=== PATIENT | female | born 1950 | race Caucasian/White ===

== ENCOUNTER 2019-05-01 19:58 | Emergency (ER) | payer MEDICARE, BC ==
[2019-05-01 20:20] VITALS: RESP 18; TEMP 97.3
[2019-05-01 20:30] LABS: Glucose,Whole Blood 129 mg/dL (75-99)
[2019-05-01] MEDS ORDERED: MECLIZINE 12.5 MG TAB PO STA (21:03)
[2019-05-01] MEDS ORDERED: SODIUM CHLORIDE 0.9% 1,000 ML IV STA (21:04)
[2019-05-01] MEDS ORDERED: SODIUM CHLORIDE 0.9% 500 ML 500 ML IV STA (21:04)
--- NOTE | 2019-05-01 21:09 | ED ---
Dizziness HPI - General Chief Complaint: Dizziness Stated Complaint: Nausea/Vomiting Time Seen by Provider: 05/01/19 20:35 Source: patient, family, EMS, RN notes reviewed Mode of arrival: EMS Limitations: no limitations - History of Present Illness Initial Comments: This is a 60-year-old female with extensive history of aortic surgery was descending and ascending aortic surgery also stent placement in the recent past who states while eating dinner tonight she became very lightheaded and dizzy with some nausea. She has she did vomit multiple times also. She complains generalized weakness she does get dizziness with head movement and some much wit h her eyes. No chest or abdominal pain no weakness to her upper or lower extremities focal he just generalized weakness. She does state that she has recently been worked up she does have an extensive history of hypertension her pressure at the onset was 220/120 currently is 183/86 this is not uncommon for her she states. She has of a history of hypertension as well as melanoma treatment in the past. She also does say she had a recent medication change. At this time no other modifying factors MD Complaint: dizziness - Related Data Home Medications Medication Instructions Recorded Confirmed Aspirin 325 mg PO DAILY 05/01/19 05/01/19 Clopidogrel [Plavix] 75 mg PO DAILY 05/01/19 05/01/19 Hydrochlorothiazide 25 mg PO DAILY 05/01/19 05/01/19 Labetalol [Trandate] 100 mg PO BID 05/01/19 05/01/19 amLODIPine [Norvasc] 2.5 mg PO HS 05/01/19 05/01/19 Previous Rx's Medication Instructions Recorded Meclizine [Antivert] 25 mg PO TID #20 tab 05/02/19 Potassium Chloride ER [K-Dur 20] 20 meq PO DAILY #10 tab 05/02/19 Allergies Allergy/AdvReac Type Severity Reaction Status Date / Time codeine AdvReac DOES NOT Verified 05/01/19 21:05 WANT hydromorphone [From Dilaudid] AdvReac DOES NOT Verified 05/01/19 21:05 WANT meperidine [From Demerol] AdvReac DOES NOT Verified 05/01/19 21:05 WANT morphine AdvReac DOES NOT Verified 05/01/19 21:05 WANT oxycodone [From OxyContin] AdvReac DOES NOT Verified 05/01/19 21:05 WANT Review of Systems ROS Statement: Those systems with pertinent positive or pertinent negative responses have been documented in the HPI. ROS Other: All systems not noted in ROS Statement are negative. Past Medical History Past Medical History: Deep Vein Thrombosis (DVT), Hypertension Additional Past Medical History / Comment(s): AAA repair ascending and descendi ng, stents to descending and total repair of ascending. Aortic Dissection. Additional Past Surgical History / Comment(s): AAA dissection and repair at [facility] Smoking Status: Former smoker Past Alcohol Use History: Rare Past Drug Use History: None Reported General Exam - General Exam Comments Initial Comments: This a well-developed well-nourished awake alert oriented 3 female Limitations: no limitations General appearance: alert, in no apparent distress Head exam: Present: atraumatic, normocephalic, normal inspection Eye exam: Present: normal appearance, PERRL, EOMI. Absent: scleral icterus, conjunctival injection, periorbital swelling ENT exam: Present: mucous membranes dry Neck exam: Present: normal inspection, full ROM, other (No stridor JVD or bruits). Absent: tenderness, meningismus, lymphadenopathy Respiratory exam: Present: normal lung sounds bilaterally. Absent: respiratory distress, wheezes, rales, rhonchi, stridor Cardiovascular Exam: Present: regular rate, normal rhythm, normal heart sounds. Absent: systolic murmur, diastolic murmur, rubs, gallop, clicks GI/Abdominal exam: Present: soft, normal bowel sounds. Absent: distended, tenderness, guarding, rebound, rigid, bruit, pulsatile mass Extremities exam: Present: normal inspection, full ROM, normal capillary refill. Absent: tenderness, pedal edema, joint swelling, calf tenderness Back exam: Present: normal inspection Neurological exam: Present: alert, oriented X3, CN II-XII intact Psychiatric exam: Present: normal affect, normal mood Skin exam: Present: warm, dry, intact, normal color. Absent: rash Course Vital Signs 05/01/19 05/01/19 05/01/19 20:01 20:22 21:13 Temperature 97.3 F L 97.3 F L Pulse Rate 70 70 73 Respiratory 18 18 18 Rate Blood Pressure 189/115 189/115 165/93 O2 Sat by Pulse 90 L 90 L 92 L Oximetry 05/01/19 05/01/19 22:46 23:59 Temperature Pulse Rate 71 71 Respiratory 18 18 Rate Blood Pressure 152/92 156/84 O2 Sat by Pulse 93 L 93 L Oximetry EKG Findings - EKG Results: EKG: interpreted by MELISSA, sinus rhythm (Sinus rhythm with 68. Ago 180 QRS duration 94 QT since QTC 434/461 nonspecific T-wave relate that presented by EMS.) Medical Decision Making - Medical Decision Making Patient's presentation consistent with vertigo and dehydration with orthostatic findings. Additionally her potassium is 3.2. We a long discussion regarding the findings and symptoms. Patient be placed on Antivert as well as potassium supplementation he is encourage increase her fluid intake. - Lab Data Result diagrams: 05/01/19 20:20 05/01/19 20:20 Lab Results 05/01/19 05/01/19 05/01/19 Range/Units 20:20 20:20 20:20 WBC 12.3 H (3.8-10.6) k/uL RBC 5.45 H (3.80-5.40) m/uL Hgb 16.0 (11.4-16.0) gm/dL Hct 48.7 H (34.0-46.0) % MCV 89.4 (80.0-100.0) fL MCH 29.3 (25.0-35.0) pg MCHC 32.8 (31.0-37.0) g/dL RDW 15.5 (11.5-15.5) % Plt Count 194 (150-450) k/uL Neutrophils % 78 % Lymphocytes % 15 % Monocytes % 4 % Eosinophils % 2 % Basophils % 0 % Neutrophils # 9.6 H (1.3-7.7) k/uL Lymphocytes # 1.8 (1.0-4.8) k/uL Monocytes # 0.4 (0-1.0) k/uL Eosinophils # 0.2 (0-0.7) k/uL Basophils # 0.1 (0-0.2) k/uL Sodium 140 (137-145) mmol/L Potassium 3.2 L (3.5-5.1) mmol/L Chloride 103 (98-107) mmol/L Carbon Dioxide 25 (22-30) mmol/L Anion Gap 12 mmol/L BUN 34 H (7-17) mg/dL Creatinine 0.76 (0.52-1.04) mg/dL Est GFR (CKD-EPI)AfAm >90 (>60 ml/min/1.73 sqM) Est GFR (CKD-EPI)NonAf 81 (>60 ml/min/1.73 sqM) Glucose 142 H (74-99) mg/dL POC Glucose (mg/dL) (75-99) mg/dL POC Glu [place] ID Calcium 9.7 (8.4-10.2) mg/dL Magnesium 1.9 (1.6-2.3) mg/dL Total Bilirubin 0.6 (0.2-1.3) mg/dL AST 27 (14-36) U/L ALT 16 (9-52) U/L Alkaline Phosphatase 102 (38-126) U/L Creatine Kinase 66 (30-135) U/L Troponin I <0.012 (0.000-0.034) ng/mL Total Protein 7.4 (6.3-8.2) g/dL Albumin 4.4 (3.5-5.0) g/dL TSH 3.760 (0.465-4.680) mIU/L Urine Color Urine Appearance (Clear) Urine pH (5.0-8.0) Ur Specific [place] (1.001-1.035) Urine Protein (Negative) Urine Glucose (UA) (Negative) Urine Ketones (Negative) Urine Blood (Negative) Urine Nitrite (Negative) Urine Bilirubin (Negative) Urine Urobilinogen (<2.0) mg/dL Ur Leukocyte Esterase (Negative) Urine RBC (0-5) /hpf Urine WBC (0-5) /hpf Ur Squamous Epith Cells (0-4) /hpf Urine Bacteria (None) /hpf Hyaline Casts (0-2) /lpf Urine Mucus (None) /hpf 05/01/19 05/01/19 Range/Units 20:20 20:23 WBC (3.8-10.6) k/uL RBC (3.80-5.40) m/uL Hgb (11.4-16.0) gm/dL Hct (34.0-46.0) % MCV (80.0-100.0) fL MCH (25.0-35.0) pg MCHC (31.0-37.0) g/dL RDW (11.5-15.5) % Plt Count (150-450) k/uL Neutrophils % % Lymphocytes % % Monocytes % % Eosinophils % % Basophils % % Neutrophils # (1.3-7.7) k/uL Lymphocytes # (1.0-4.8) k/uL Monocytes # (0-1.0) k/uL Eosinophils # (0-0.7) k/uL Basophils # (0-0.2) k/uL Sodium (137-145) mmol/L Potassium (3.5-5.1) mmol/L Chloride (98-107) mmol/L Carbon Dioxide (22-30) mmol/L Anion Gap mmol/L BUN (7-17) mg/dL Creatinine (0.52-1.04) mg/dL Est GFR (CKD-EPI)AfAm (>60 ml/min/1.73 sqM) Est GFR (CKD-EPI)NonAf (>60 ml/min/1.73 sqM) Glucose (74-99) mg/dL POC Glucose (mg/dL) 129 H (75-99) mg/dL POC Glu Register Of De[employer] ID Jeralddonavon Elizabeth Calcium (8.4-10.2) mg/dL Magnesium (1.6-2.3) mg/dL Total Bilirubin (0.2-1.3) mg/dL AST (14-36) U/L ALT (9-52) U/L Alkaline Phosphatase (38-126) U/L Creatine Kinase (30-135) U/L Troponin I (0.000-0.034) ng/mL Total Protein (6.3-8.2) g/dL Albumin (3.5-5.0) g/dL TSH (0.465-4.680) mIU/L Urine Color Yellow Urine Appearance Cloudy H (Clear) Urine pH 6.5 (5.0-8.0) Ur Specific [place] 1.023 (1.001-1.035) Urine Protein Negative (Negative) Urine Glucose (UA) Negative (Negative) Urine Ketones Negative (Negative) Urine Blood Negative (Negative) Urine Nitrite Negative (Negative) Urine Bilirubin Negative (Negative) Urine Urobilinogen 2.0 (<2.0) mg/dL Ur Leukocyte Esterase Small H (Negative) Urine RBC 2 (0-5) /hpf Urine WBC 3 (0-5) /hpf Ur Squamous Epith Cells 5 H (0-4) /hpf Urine Bacteria Rare H (None) /hpf Hyaline Casts 4 H (0-2) /lpf Urine Mucus Few H (None) /hpf - Radiology Data Radiology results: report reviewed (I did review the imaging and report no evidence of acute findings.), image reviewed Disposition Clinical Impression: Benign paroxysmal positional vertigo, Hypokalemia, Dehydration Disposition: HOME SELF-CARE Condition: Good Instructions (If sedation given, give patient instructions): Dizziness (ED), Benign Paroxysmal Positional Vertigo (ED), Dehydration (ED), Hypokalemia (ED) Prescriptions: Meclizine [Antivert] 25 mg PO TID #20 tab Potassium Chloride ER [K-Dur 20] 20 meq PO DAILY #10 tab Is patient prescribed a controlled substance at d/c from ED?: No Referrals: Adelso Pelaez MD [Primary Care Provider] - 1-2 days
[2019-05-01 21:33] LABS: Basophils # (A) 0.1 k/uL (0-0.2); Basophils % (A) 0 %; Eosinophils # (A) 0.2 k/uL (0-0.7); Eosinophils % (A) 2 %; HCT 48.7 % (34.0-46.0); Lymphocytes # (A) 1.8 k/uL (1.0-4.8); Lymphocytes % (A) 15 %; MCH 29.3 pg (25.0-35.0); MCHC 32.8 g/dL (31.0-37.0); MCV 89.4 fL (80.0-100.0); Mean Platelet Volume 7.7; Monocytes # (A) 0.4 k/uL (0-1.0); Monocytes % (A) 4 %; Neutrophils # (A) 9.6 k/uL (1.3-7.7); Neutrophils % (A) 78 %; Platelet Count 194 k/uL (150-450); RBC 5.45 m/uL (3.80-5.40); RDW 15.5 % (11.5-15.5); WBC 12.3 k/uL (3.8-10.6)
[2019-05-01 21:46] LABS: ALT 16 U/L (9-52); AST 27 U/L (14-36); African American GFR (CKD) >90 (>60 ml/min/1.73 sqM); Albumin 4.4 g/dL (3.5-5.0); Alkaline Phosphatase 102 U/L (38-126); Anion Gap 12 mmol/L; Blood Urea Nitrogen 34 mg/dL (7-17); Calcium 9.7 mg/dL (8.4-10.2); Carbon Dioxide 25 mmol/L (22-30); Chloride 103 mmol/L (98-107); Creatine Kinase 66 U/L (30-135); Glucose 142 mg/dL (74-99); Magnesium 1.9 mg/dL (1.6-2.3); Potassium 3.2 mmol/L (3.5-5.1); Sodium 140 mmol/L (137-145); Total Bilirubin 0.6 mg/dL (0.2-1.3); Total Protein 7.4 g/dL (6.3-8.2)
[2019-05-01 21:56] LABS: Appearance,Urine Cloudy (Clear); Bacteria,Urine Rare /hpf; Bilirubin,Urine Negative (Negative); Blood,Urine Negative (Negative); Color,Urine Yellow; Glucose,Urine (UA) Negative (Negative); Hyaline Casts,Urine 4 /lpf (0-2); Ketones,Urine Negative (Negative); Leukocyte Esterase,Urine Small (Negative); Mucus,Urine Few /hpf; Nitrite,Urine Negative (Negative); PH, Urine 6.5 (5.0-8.0); Protein,Urine Negative (Negative); RBC,Urine 2 /hpf (0-5); Specific Gravity,Urine 1.023 (1.001-1.035); Squamous Epithelial Cell,Urine 5 /hpf (0-4); WBC,Urine 3 /hpf (0-5)
[2019-05-01 22:47] VITALS: PULSE 71
[2019-05-01 23:59] VITALS: BP 156/84
--- NOTE | 2019-05-02 00:10 | CT ---
History: ITS.REASON CT Reason: Pain Exam: CTA CHEST MIP images obtained Technique more: CTDI is 19.27 mGy and DLP is 2016.5 mGy-cm. Technique more: This CT exam was performed using one or more of the following dose reduction techniques: automated exposure control, adjustment of the mA and/or kV according to patient size, and/or use of iterative reconstruction technique. Comparison: None available FINDINGS: Stent at the aortic arch and distal thoracic aorta is patent. No aneurysm or dissection. No flow significant stenosis. Stent within the proximal left subclavian artery is patent. No pericardial or pleural effusion. Mild appearing in-stent mural soft plaque formation within the descending thoracic aorta. The central airways are patent. Pulmonary emphysema without focal consolidation. Patchy opacity at the right base may represent atelectasis with developing infiltrate not excluded. IMPRESSION: Stent at the aortic arch and distal thoracic aorta is patent. No aneurysm or dissection. No flow significant stenosis. Stent within the proximal left subclavian artery is patent. Mild appearing in-stent mural soft plaque formation within the descending thoracic aorta. The central airways are patent. Pulmonary emphysema without focal consolidation. Patchy opacity at the right base may represent atelectasis with developing infiltrate not excluded. Exam: CTA ABDOMEN + PELVIS MIP images obtained Technique more: CTDI is 19.27 mGy and DLP is 2016.5 mGy-cm. Technique more: This CT exam was performed using one or more of the following dose reduction techniques: automated exposure control, adjustment of the mA and/or kV according to patient size, and/or use of iterative reconstruction technique. Comparison: None available FINDINGS: Abdominal aorta within limits without aneurysm or dissection. Dissection flap throughout the celiac trunk with contrast on both sides of the flap. No dissection is seen within the celiac branches. Contrast is seen beyond. The SMA, renal arteries and LOPEZ fill with contrast as expected. Right external iliac stent is patent. In the mid to distal aspect of the stent there is in-stent luminal narrowing with approximately 70% luminal stenosis. Contrast is seen beyond. No bowel dilation or free air. Diverticulosis without diverticulitis. Normal caliber appendix without secondary signs. Abdominal solid organs and gallbladder appear within limits. IMPRESSION: Abdominal aorta within limits without aneurysm or dissection. Dissection flap throughout the celiac trunk with contrast on both sides of the flap. No dissection is seen within the celiac branches. Contrast is seen beyond. The SMA, renal arteries and LOPEZ fill with contrast as expected. Right external iliac stent is patent. In the mid to distal aspect of the stent there is in-stent luminal narrowing with approximately 70% luminal stenosis. Contrast is seen beyond. Exam: CTA EXTREMITY LEFT LOWER MIP images obtained Technique more: CTDI is 19.27 mGy and DLP is 2016.5 mGy-cm. Technique more: This CT exam was performed using one or more of the following dose reduction techniques: automated exposure control, adjustment of the mA and/or kV according to patient size, and/or use of iterative reconstruction technique. Comparison: None available FINDINGS: The common femoral, superficial femoral, deep femoral and circumflex contain contrast. Popliteal artery contains contrast with 3 vessel runoff to the foot. No vessel cut off/occlusion or flow significant stenosis identified. IMPRESSION: No vessel cut off/occlusion or flow significant stenosis identified. Exam: CTA EXTREMITY RIGHT LOWER MIP images obtained Technique more: CTDI is 19.27 mGy and DLP is 2016.5 mGy-cm. Technique more: This CT exam was performed using one or more of the following dose reduction techniques: automated exposure control, adjustment of the mA and/or kV according to patient size, and/or use of iterative reconstruction technique. Comparison: None available FINDINGS: The common femoral, superficial femoral, deep femoral contain contrast. Origin of the circumflex is not seen with contrast although contrast is seen beyond. Popliteal artery contains contrast with 3 vessel runoff to the foot. No vessel cut off/occlusion or flow significant stenosis identified. IMPRESSION: No vessel cut off/occlusion or flow significant stenosis identified. Origin of the circumflex is not seen with contrast although contrast is seen beyond.
== END 2019-05-02 00:54 | disposition home or self-care (01) ==
LOC: EC 19:58
DX: H81.10 Benign paroxysmal vertigo, unspecified ear (principal); E87.6 Hypokalemia; E86.0 Dehydration; I10 Essential (primary) hypertension; Z79.82 Long term (current) use of aspirin; Z79.01 Long term (current) use of anticoagulants; Z79.899 Other long term (current) drug therapy; Z88.5 Allergy status to narcotic agent; Z86.718 Personal history of other venous thrombosis and embolism; Z87.891 Personal history of nicotine dependence; Z85.820 Personal history of malignant melanoma of skin; Z86.79 Personal history of other diseases of the circulatory system
CPT/HCPCS: 99285; 36415; 93005; 80053; 84443; 82550; 83735; 84484; 85025; 81001; 75635; 71275; 96360; 96361 ×2; Q9967